=== PATIENT | female | born 1990 | race Caucasian/White ===

== ENCOUNTER → 2017-02-28 | Outpatient (CLI) | payer BC ==
[~2017-02-28] MED LIST: FERR1TAB23 PO; PRENTAB26 PO
[2017-02-28 16:36] LABS: BASO % 0.2 %; BASO ABS # 0.02 K/uL (0-0.2); COMPLETE YES; HEMATOCRIT 39.5 % (37-47); IG% 0.2 %; LYMPH % 24.2 %; LYMPH ABS # 2.82 K/uL (1.2-3.4); MEAN CORPUSCULAR HEMOGLOBIN 25.9 pg (25-34); MEAN CORPUSCULAR HGB CONC 32.4 g/dl (32-36); MEAN PLATELET VOLUME 9.9 fL (7.4-10.4); MONO % 6.7 %; NEUT % 64.7 %; PLATELET COUNT 324 K/uL (130-400); RED BLOOD COUNT 4.94 M/uL (4.2-5.4); WHITE BLOOD COUNT 11.64 K/uL (4.8-10.8)
[2017-02-28 17:04] LABS: ALT/SGPT 23 U/L (12-78); BLOOD UREA NITROGEN 16 mg/dl (7-18); BUN/CREATININE RATIO 20.9 (10-20); CALCIUM 9.3 mg/dl (8.5-10.1); CARBON DIOXIDE 28 mmol/L (21-32); CHLORIDE 107 mmol/L (98-107); CREATININE 0.75 mg/dl (0.60-1.20); GLUCOSE 89 mg/dl (70-99); POTASSIUM 3.9 mmol/L (3.5-5.1); SODIUM 140 mmol/L (136-145)
[2017-02-28 17:07] LABS: ALKALINE PHOSPHATASE 98 U/L (45-117); AST/SGOT 15 U/L (15-37)
== END | disposition home or self-care (01) ==
LOC: C.LAB1850 15:49
PROVIDERS: ATTEND Nurse Practitioner Adult Health
DX: D72.829 Elevated white blood cell count, unspecified (principal); O16.5 Unspecified maternal hypertension, complicating the puerperium; R74.8 Abnormal levels of other serum enzymes

== ENCOUNTER → 2017-06-20 | Outpatient (CLI) | payer BC, OTHER ==
[2017-06-24 02:05] LABS: CHLAMYDIA TRACH RNA*** NOT DETECTED (NOT DETECTED); GC (NEIS GONORRHOEAE)RNA** NOT DETECTED (NOT DETECTED)
== END | disposition home or self-care (01) ==
LOC: C.LABSPEC 13:46
PROVIDERS: ATTEND Obstetrics & Gynecology
DX: Z34.81 Encounter for supervision of other normal pregnancy, first trimester (principal)

== ENCOUNTER → 2017-06-24 | Outpatient (CLI) | payer OTHER ==
[2017-06-24 09:54] LABS: PATIENT HEIGHT 157.5 cm
[2017-06-24 10:19] LABS: BASO % 0.1 %; BASO ABS # 0.01 K/uL (0-0.2); COMPLETE YES; EOS % 1.1 %; HEMATOCRIT 37.5 % (37-47); IG% 0.3 %; LYMPH % 16.9 %; LYMPH ABS # 1.79 K/uL (1.2-3.4); MEAN CELL VOLUME 78.5 fL (80-100); MEAN CORPUSCULAR HEMOGLOBIN 26.8 pg (25-34); MEAN CORPUSCULAR HGB CONC 34.1 g/dl (32-36); MEAN PLATELET VOLUME 10.4 fL (7.4-10.4); MONO % 4.4 %; NEUT % 77.2 %; PLATELET COUNT 263 K/uL (130-400); RED BLOOD COUNT 4.78 M/uL (4.2-5.4); WHITE BLOOD COUNT 10.58 K/uL (4.8-10.8)
[2017-06-24 12:30] LABS: URINE APPEARANCE CLOUDY (CLEAR); URINE BILIRUBIN NEG (NEG); URINE COLOR DK YELLOW; URINE EPITHELIAL CELL AUTO >30 /lpf (0-5); URINE NITRITE NEG (NEG); URINE SPECIFIC GRAVITY 1.024 (1.000-1.030); UROBILINOGEN NEG (NEG)
[2017-06-24 12:40] LABS: MANUAL MICROSCOPIC REQUIRED? NO; REVIEW REQ? NO
[2017-06-24 13:17] LABS: CREATININE, URINE 66.8 mg/dl
[2017-06-24 15:26] LABS: CREATININE 0.42 mg/dl (0.6-1.2)
== END | disposition home or self-care (01) ==
LOC: C.LAB 09:25
PROVIDERS: ATTEND Obstetrics & Gynecology
DX: Z34.81 Encounter for supervision of other normal pregnancy, first trimester (principal)

== ENCOUNTER → 2017-07-17 | Outpatient (CLI) | payer OTHER ==
[~2017-07-17] MED LIST changes: +ASPI81TA28 PO; +LABE1TAB28 PO; +MTR600X PO
== END | disposition home or self-care (01) ==
LOC: C.LAB1850 09:48
PROVIDERS: ATTEND Obstetrics & Gynecology
DX: Z34.82 Encounter for supervision of other normal pregnancy, second trimester (principal)

== ENCOUNTER → 2017-07-25 | Outpatient (CLI) | payer OTHER ==
[~2017-07-25] MED LIST changes: -ASPI81TA28 PO; -LABE1TAB28 PO; -MTR600X PO
== END | disposition home or self-care (01) ==
LOC: C.LAB1850 07:17
PROVIDERS: ATTEND Obstetrics & Gynecology
DX: O28.1 Abnormal biochemical finding on antenatal screening of mother (principal)

== ENCOUNTER → 2017-10-01 | Outpatient (CLI) | payer OTHER | END | disposition home or self-care (01) | LOC: C.LABSPEC 11:06 | PROVIDERS: ATTEND Obstetrics & Gynecology | DX: Z34.83 Encounter for supervision of other normal pregnancy, third trimester (principal) ==

== ENCOUNTER 2019-04-22 07:57 | Inpatient (IN) ==
--- OUTSIDE RECORDS SUMMARY | 2019-04-22 08:02 | External Medical Summary | Continuity of Care Document ---
:1990 Author Name Kourtney Jackson, Provider Address Unavailable Unavailable , Care Team Providers Name Role Phone Unavailable Unavailable Unavailable Diana Quiros [email or web address] JOHN NAVA Unavailable Unavailable Unavailable Unavailable Unavailable Problems Abnormal biochemical finding on screening of tam r (796.5) (O28.1) Supervision of normal intrauterine pregn jose martin in multigravida in second trimester (V22.1) (Z34.82) Supervision of normal intrauterine pregn jose martin in multigravida in third trimester (V22.1) (Z34.83) Poor growth affecting management o f mother, antepartum, single or unspecified fetus (656.53) (O36.5990) Chronic hypertension (401.9) (I10) History of pre-eclampsia in prior pregna ncy, currently in first trimester (V23.49) (O09.291) Allergies and Adverse Reactions predniSONE TABS (Allergy) Medications Manuel WYNN Refills: 0 Labetalol HCl - 100 MG Oral Tablet; TAKE 1 TABLET EVERY HS S Manuel leon Start: 09-Jul-2016 Quantity: 30 Refills: 3 Procedures History of wisdom tooth extraction Statu s: Completed Immunizations Fluzone Quadrivalent 0.5 ML Intramuscular Suspension On: Apr-2016 15:14 Lot #: [id number], [employer] Tdap (Adacel) On: 09-May-2016 15:15 Lot #: [id number], [employer]UR Fluzone Quadrivalent 0.5 ML Intramuscular Suspension On: 17:22 Lot #: [id number], [employer] Family History Grandfather Family history of diabetes mellitus (V18.0) (Z83.3) Status: Active Family history of hypertension (V17.49) (Z82.49) Status: Act juan ramon FHx: hypercholesterolemia (V18.19) (Z83.42) Status: Active Grandfather FHx: hypercholesterolemia (V18.19) (Z83.42) Status: Active Social History - Smoking Status Never smoker Plan of Treatment Planned Observations Planned Goals not documented Results No Known Results Results not documented Encounters Appointment; Raina Kenny M.D. 01-Oct-2017 9:40 Encounter Diagnosis: Problem not documented Appointment; OBSUSI JAY1, Ultrasound 01-Oct-2017 9:00 Encounter Diagnosis: Problem not documented Appointment; Gill Ravi M.D. 05-Sep-2017 10:30 Encounter Diagnosis: Problem not documented Appointment; OBGYDhiraj JAY2, Ultrasound 05-Sep-2017 10:00 Encounter Diagnosis: Problem not documented Appointment; Diana Quiros M.D. 07-Aug-2017 13:50 Encounter Diagnosis: Problem not documented Appointment; OBSUSI JAY2, Ultrasound 07-Aug-2017 13:00 Encounter Diagnosis: Problem not documented Appointment; Diana Quiros M.D. 17-Jul-2017 8:40 Encounter Diagnosis: Problem not documented Appointment; Raina Kenny M.D. 20-Jun-2017 9:50 Encounter Diagnosis: Problem not documented Appointment; OB SC1, Procedure Rm 20-Jun-2017 9:50 Encounter Diagnosis: Problem not documented Appointment; OBGYN SC2, Ultrasound 20-Jun-2017 9:15 Encounter Diagnosis: Problem not documented Appointment; OB SC1, Nursing Station 17-Jun-2017 9:45 Encounter Diagnosis: Problem not documented
[2019-04-22] MEDS ORDERED: OXYTOCIN 30 UNITS/500 ML BAG IV PRN ×3 (08:46→17:21)
[2019-04-22 09:02] LABS: Hematocrit (blood only) 37.9 % (37-47); Hemoglobin 12.5 g/dL (12.0-16.0); Mean Corpuscular Hemoglobin 26.2 pg (25-34); Mean Corpuscular Volume 79.3 fL (80-100); Mean Platelet Volume 10.6 fL (7.4-10.4); Platelet Count 210 K/uL (130-400); RDW Standard Deviation 43.1 fL (36.4-46.3); Red Blood Count 4.78 M/uL (4.2-5.4); White Blood Count 11.51 K/uL (4.8-10.8)
--- NOTE | 2019-04-22 09:02 | Obstetrical Progress Note ---
Date of Service April 22, 2019 Subjective Admit Note 28 F P2002 at 39 weeks admitted for induction of labor for chronic hypertension and proteinuria. Denies headaches or visual changes. No edema. GBS is negative. cervix is 3/60/-2/intact/vertex/anterior/soft. EFW 8 lbs. Will start Oxytocin to start induction. Anticipate normal delivery. Results & Data Vital Signs (Past 12 Hours) Vital Signs Temp Pulse Resp BP 04/22/19 08:43 107 H 120/80 04/22/19 08:28 112 H 122/79 04/22/19 08:19 36.5 C 20 04/22/19 08:12 103 H 129/83
[2019-04-22] MEDS: LACTATED RINGER'S 1,000 ML IV PRN ×2 (09:53→14:41)
--- NOTE | 2019-04-22 13:26 | Obstetrical Progress Note ---
Date of Service April 22, 2019 Physical Exam Genitourinary: Manual OB Exam: + cervical dilation 4 cm, + cervical effacement 80%, + station -1 and + amniotic fluid clear OB Exam Monitor Tracing: + external FHT monitor used, + external uterine monitor used and + category I AROM with clear fluid Results & Data Vital Signs (Past 12 Hours) Vital Signs Temp Pulse Resp BP 04/22/19 12:28 79 135/87 04/22/19 11:25 36.5 C 81 18 138/89 04/22/19 10:36 86 140/94 04/22/19 09:53 96 H 18 133/92 04/22/19 08:43 107 H 18 120/80 04/22/19 08:28 112 H 18 122/79 04/22/19 08:19 36.5 C 20 04/22/19 08:12 103 H 129/83
[2019-04-22] MEDS ORDERED: BUPIVACAINE 0.25% 30 ML VIAL ONE (14:18)
[2019-04-22] MEDS ORDERED: ePHEDrine sulfate 50 MG/ML AMP ONE (14:18)
[2019-04-22] MEDS ORDERED: fentaNYL citrate 100 MCG/2 ML VIAL ONE (14:19)
[2019-04-22] MEDS ORDERED: fentaNYL 2MCG/ML ROPIV 1.25MG/ML 100 ML BAG EPI ONE (14:19)
[2019-04-22] MEDS ORDERED: NALOXONE HCL 0.4 MG/1 ML VIAL/CARP IV PRN (14:35)
[2019-04-22] MEDS ORDERED: ePHEDrine sulfate 50 MG/ML AMP IV PRN (14:35)
[2019-04-22] MEDS ORDERED: fentaNYL 2MCG/ML ROPIV 1.25MG/ML 100 ML BAG EPI PRN (14:35)
[2019-04-22] MEDS ORDERED: NALOXONE HCL 1 MG in SODIUM CHLORIDE 0.9% 1000ML 1,000 ML IV PRN (14:35)
[2019-04-22] MEDS ORDERED: NALBUPHINE HCL INJ 10 MG/ML AMP IV PRN (14:35)
[2019-04-22] MEDS ORDERED: ONDANSETRON INJ 2 MG/ML 2 ML VIAL IV PRN (14:35)
[2019-04-22] MEDS ORDERED: DiphenhydrAMINE HCL 50 MG/ML VIAL IV PRN (14:35)
--- NOTE | 2019-04-22 14:35 | Anesthesiology Consultation ---
Date of Service April 22, 2019 Assessment & Plan (1) Encounter for pre-operative examination: Chart Review Chart Review: Acceptable Risk for Labor Epidural Consults Requested none ASA ASA2 Proposed Anesthesia Anesthesia Type: Labor Epidural Risk / Benefits Reviewed With: PT / POA / Parent / Guardian, Accepts Plan and Informed Consent Obtained History Height/Weight Height: 5 ft 2 in Weight: 93.894 kg Allergies Allergy/AdvReac Type Severity Reaction Status Date / Time prednisone Allergy Intermediate lower Verified 12/24/17 08:21 extremeties goes numb cottenweed Allergy Mild itching Uncoded 06/20/16 19:17 Medications Home Medications Medication Instructions Recorded Confirmed Last Taken Multivit/Min/Iron/Fol Ac/Pren 1 tab PO DAILY #0 tab 06/20/16 04/22/19 04/22/19 06:00 ( Vitamin) Active Medications Generic Name Dose Route Start Last Admin Trade Name Freq PRN Reason Stop Dose Admin Lactated Ringer's 1,000 mls @ 125 mls/hr 04/22/19 08:46 04/22/19 09:53 Lr IV 04/24/19 08:45 125 mls/hr .Q8H PRN Administration L&D Protocol Protocol Oxytocin 30 units in 500 mls @ 7 mls/hr 04/22/19 09:22 04/22/19 12:05 Pitocin IV 04/24/19 09:21 0.42 units/hr .Q24H PRN 7 mls/hr Labor Induction/Augmentation Titration Protocol 0.42 UNITS/HR Past Medical History Medical History Chronic hypertension Patient reports elevated BP's "here and there" Patient reports increased pressures with . [place] teeth extracted Exercise / Class Metabolic Activity II 4-5 Yardwork/Stairs/Walk up hill Past Family History Family History Grandfather (Maternal) Diabetes Hypertension Past Anesthesia History No Hx of Anesthesia Complications and No Family Hx of Anesthesia Complications History of PONV No Hx of PONV and No Hx of Motion Sickness Social History Smoking Status: Never smoker Hx Alcohol Use: No Hx Substance Use: No Physical Exam Vital Signs Last Vital Signs Temp 97.9 F 04/22/19 13:26 Pulse 108 H 04/22/19 14:30 Resp 20 04/22/19 13:26 BP 137/85 04/22/19 13:28 Pulse Ox 99 04/22/19 14:30 ENMT Mouth: no dentition abnormality Thyromental Distance: > or= 3.5 Finger Breadths Mallampati Class: II Neck normal visual inspection Respiratory normal respiratory effort Auscultation: lungs clear to auscultation bilaterally Cardiovascular Rate/Rhythm: regular rate and regular rhythm Testing Laboratory Results 04/22/19 08:49
--- NOTE | 2019-04-22 16:02 | Obstetrical Progress Note ---
Date of Service April 22, 2019 Physical Exam Genitourinary: OB Exam Abdomen: + regular contractions Manual OB Exam: + cervical dilation 10 cm, + cervical effacement 100%, + station 0 and + amniotic fluid OB Exam Monitor Tracing: + external FHT monitor used, + external uterine monitor used, + category I and + normal FHT variability will start to push Results & Data Vital Signs (Past 12 Hours) Vital Signs Temp Pulse Resp BP Pulse Ox 04/22/19 15:57 90 136/91 04/22/19 15:55 91 H 98 04/22/19 15:50 99 H 99 04/22/19 15:45 88 99 04/22/19 15:41 96 H 145/93 H 04/22/19 15:40 100 H 99 04/22/19 15:35 101 H 98 04/22/19 15:30 105 H 99 04/22/19 15:25 94 H 148/91 H 98 04/22/19 15:23 103 H 144/89 H 04/22/19 15:21 98 H 143/93 H 04/22/19 15:20 91 H 99 04/22/19 15:19 98 H 142/92 H 04/22/19 15:17 74 145/91 H 04/22/19 15:15 85 142/91 H 99 04/22/19 15:13 87 143/96 H 04/22/19 15:11 122 H 141/93 H 04/22/19 15:10 79 99 04/22/19 15:09 96 H 140/91 04/22/19 15:07 101 H 135/91 04/22/19 15:06 95 H 134/86 04/22/19 15:05 98 H 99 04/22/19 15:03 85 145/86 H 04/22/19 15:01 85 139/87 04/22/19 15:00 105 H 98 04/22/19 14:59 80 145/92 H 04/22/19 14:57 97 H 142/91 H 04/22/19 14:56 36.9 C 20 04/22/19 14:55 98 H 141/95 H 98 04/22/19 14:53 93 H 141/92 H 04/22/19 14:52 85 143/90 H 04/22/19 14:50 72 100 04/22/19 14:49 80 148/102 H 04/22/19 14:46 82 144/96 H 04/22/19 14:45 92 H 99 04/22/19 14:40 77 99 04/22/19 14:35 94 H 95 04/22/19 14:30 108 H 99 04/22/19 13:28 87 137/85 04/22/19 13:26 36.6 C 20 04/22/19 12:28 79 135/87 04/22/19 11:25 36.5 C 81 18 138/89 04/22/19 10:36 86 140/94 04/22/19 09:53 96 H 18 133/92 04/22/19 08:43 107 H 18 120/80 04/22/19 08:28 112 H 18 122/79 04/22/19 08:19 36.5 C 20 04/22/19 08:12 103 H 129/83
--- NOTE | 2019-04-22 16:25 | Delivery Summary ---
Vaginal Delivery Summary Date of Service April 22, 2019 Vaginal Delivery Summary Delivery note live female over intact perineum with nuchal cord x1 reduced on perineum with Apgars 9/9 weight pending. cord blood obtained followed by spontaneous delivery of intact placenta. No tears. EBL 100 ml. Final sponge and instrument count are correct. Mom and baby stable.
[2019-04-22] MEDS ORDERED: DIPHTHERIA/TETANUS/PERTUSSIS 0.5 ML SYR/VIAL IM ONE (17:21)
[2019-04-22] MEDS ORDERED: bisacodyL 10 MG SUPP PR PRN (17:21)
[2019-04-22] MEDS ORDERED: HYDROCORTISONE ACETATE 25 MG SUPP PR PRN (17:21)
[2019-04-22] MEDS ORDERED: ACETAMINOPHEN 325 MG TAB PO PRN (17:21)
[2019-04-22] MEDS ORDERED: SUPERCREAM 0.870% 15 GM JAR EXT PRN (17:21)
[2019-04-22] MEDS ORDERED: IBUPROFEN 600 MG TAB PO PRN (17:21)
[2019-04-22] MEDS ORDERED: BENZOCAINE 20% AER SPR 82.5 GM CAN EXT PRN (17:21)
--- NOTE | 2019-04-22 18:18 | Anesthesia Procedure Note ---
Date of Service April 22, 2019 Anesthesia Post Epidural Note Vital Signs Vital Signs: Temp Pulse Resp BP Pulse Ox 97.5 F L 88 18 153/88 H 99 04/22/19 16:20 04/22/19 18:11 04/22/19 17:50 04/22/19 18:11 04/22/19 16:15 Notes Mental Status: alert / awake / arousable and participated in evaluation Nausea / Vomiting: adequately controlled Pain: adequately controlled Airway Patency, RR, SpO2: stable & adequate BP & HR: stable & adequate Hydration State: stable & adequate Neuraxial Anesthesia: was administered and sensory block is resolving Anesthetic Complications: no major complications apparent and Pt Satisfied with anesthetic care Epidural: Removed without complications and With tip intact
[2019-04-22] MEDS: DOCUSATE SODIUM 100 MG CAP PO SCH (22:16)
[2019-04-23 07:35] LABS: Hematocrit (blood only) 36.6 % (37-47); Hemoglobin 11.8 g/dL (12.0-16.0); Mean Corpuscular Hemoglobin 25.8 pg (25-34); Mean Corpuscular Hgb Conc 32.2 g/dL (32-36); Mean Corpuscular Volume 80.1 fL (80-100); Mean Platelet Volume 10.8 fL (7.4-10.4); Platelet Count 196 K/uL (130-400); RDW Coefficient of Variation 15.3 % (11.5-14.5); RDW Standard Deviation 44.2 fL (36.4-46.3); Red Blood Count 4.57 M/uL (4.2-5.4); White Blood Count 10.59 K/uL (4.8-10.8)
[2019-04-23] MEDS ORDERED: NON-FORMULARY MEDICATION (Multivit/Min/Iron/Fol Ac/Pren (Prenatal Vitamin) 1 TAB) PO SCH (09:00)
[2019-04-23] MEDS: FERROUS SULFATE 325 MG TAB PO SCH (09:03)
[2019-04-23] MEDS: PRENATAL VITAMIN 1 TAB PO SCH (09:03)
[2019-04-23] MEDS: DOCUSATE SODIUM 100 MG CAP PO SCH ×2 (09:03→20:04)
--- NOTE | 2019-04-23 11:31 | Obstetrical Progress Note ---
Date of Service April 23, 2019 Subjective doing fine passing gas ambulating well Physical Exam Constitutional: WD/WN, vitals as above comfortable abdomen soft fundus firm no edema neg Donn's for discharge Results & Data Vital Signs (Past 12 Hours) Vital Signs Temp Pulse Pulse Resp BP BP Pulse Ox 04/23/19 07:25 36.5 C 88 20 138/98 96 04/23/19 03:55 36.9 C 78 18 144/99 H 04/23/19 00:10 36.8 C 69 69 16 134/91 134/91 Laboratory Results Laboratory Results - last 48 hr 04/22/19 04/23/19 08:49 07:12 WBC 11.51 H 10.59 RBC 4.78 4.57 Hgb 12.5 11.8 L Hct 37.9 36.6 L MCV 79.3 L 80.1 MCH 26.2 25.8 MCHC 33.0 32.2 RDW Std Deviation 43.1 44.2 RDW Coeff of Matthew 15.0 H 15.3 H Plt Count 210 196 MPV 10.6 H 10.8 H
[2019-04-23] MEDS ORDERED: bisacodyL 5 MG TABEC PO SCH (20:00)
[2019-04-24 06:42] LABS: Hematocrit (blood only) 38.1 % (37-47); Hemoglobin 12.1 g/dL (12.0-16.0)
[2019-04-24] MEDS: FERROUS SULFATE 325 MG TAB PO SCH (09:07)
[2019-04-24] MEDS: PRENATAL VITAMIN 1 TAB PO SCH (09:07)
[2019-04-24] MEDS: DOCUSATE SODIUM 100 MG CAP PO SCH (09:07)
--- NOTE | 2019-04-24 09:47 | Obstetrical Progress Note ---
Date of Service April 24, 2019 Assessment & Plan (1) Normal vaginal delivery: PPD #2 pt doing well wishes to be discharged home Subjective Ambulation: ambulating normally Voiding: no voiding problems Passing Gas:: Yes Diet Tolerance:: regular diet Lochia:: Small Feeding Type:: breast feeding Review of Systems All systems reviewed & are unremarkable except as noted in HPI & below Physical Exam Constitutional WD/WN, vitals as above well developed and well nourished Eyes PERRL, conjunctivae normal, anicteric sclerae Neck trachea midline, no thyromegaly Respiratory normal respiratory effort, lungs clear to auscultation Auscultation: no crackles, no rales and no wheezes Cardiovascular RRR, no murmur, no edema Gastrointestinal (Abdomen) normal bowel sounds, soft, nontender, no hepatosplenomegaly Uterus is below umbilicus Musculoskeletal no cyanosis or clubbing, extremities motor strength 5/5 Skin no rashes, warm and dry Neurologic patellar DTR's 2+ bilat, sensation intact Psychiatric A+Ox3, euthymic affect Genitourinary normal external appearance Results & Data Vital Signs (Past 12 Hours) Vital Signs Temp Pulse Resp BP Pulse Ox 04/24/19 07:25 36.6 C 85 16 131/92 96 04/23/19 23:30 36.6 C 85 18 129/88
== END 2019-04-24 11:32 | disposition home or self-care (01) | DRG 807 ==
LOC: 4S1 07:57 → 4S2 19:18